=== PATIENT | male | born 1975 | race Caucasian/White ===

== ENCOUNTER → 2018-10-02 07:31 | Outpatient (CLI) | payer OTHER, SELFPAY ==
[2018-10-02 11:03] LABS: ALB/GLOB Ratio 1.2 RATIO (0.9-2.4); AST(SGOT) 17 U/L (15-37); Alanine Aminotransfer ALT/SGPT 37 U/L (16-61); Alkaline Phosphatase 45 U/L (45-117); Anion Gap 10 (5-15); BUN 19 mg/dL (7-18); BUN/Creat Ratio 19.6 RATIO (10-20); Calcium,Total 8.4 mg/dL (8.5-10.1); Chloride 101 mmol/L (98-107); Cholesterol 203 mg/dL (200); Creatinine, Serum 0.97 mg/dL (0.70-1.30); EST Glomerular Filtration Rate 89 mL/min (>60); Est Glom Filt Rate - Afr Amer 108 mL/min (>60); Globulin 3.4 g/dL (2.2-4.2); Glucose 291 mg/dL (74-106); High Density Lipoprotein 45 mg/dL; Potassium 3.9 mmol/L (3.5-5.1); Protein, Total 7.4 g/dL (6.4-8.2); Sodium Level 137 mmol/L (136-145); Thyroid Stim Hormone (TSH) 2.67 uIU/mL (0.358-3.74); Triglycerides 122 mg/dL; Very Low Density Lipoprotein 24 mg/dL (5-40)
== END ==
PROVIDERS: Family Provider Family Medicine; PCP Family Medicine; Referring Provider Family Medicine; Visit Provider Family Medicine
DX: E11.65 Type 2 diabetes mellitus with hyperglycemia (principal)
CPT/HCPCS: 36415; 80053; 80061; 84403; 84443

== ENCOUNTER → 2019-12-13 09:51 | Outpatient (CLI) | payer OTHER, SELFPAY ==
--- NOTE | 2019-12-13 09:55 | RAD_ITS ---
STUDY: X-RAY - LEFT KNEE REASON FOR EXAM: Male, 44 years old. left knee pain, swelling -- 2 surgeries on the left knee in the TECHNIQUE: 4 view(s) of the knee including weight-bearing frontal view. COMPARISON: None. FINDINGS: 2 fully threaded screws are embedded in the medial portion of the medial femoral condyle. Otherwise normal femur. Normal visualized proximal tibia and fibula. Normal proximal tibiofibular articulation. There is severe degenerative arthrosis of the medial femorotibial compartment with severe joint space narrowing. Normal lateral femorotibial compartment. There is mild degenerative arthrosis of the patellofemoral articulation. Minimal joint effusion. The soft tissue structures are unremarkable. RAD/Knee 4 or More Views IMPRESSION: 2 fully threaded screws embedded in the medial portion of the medial femoral condyle. Degenerative arthrosis of the knee that is most severe in the medial compartment. Small volume joint effusion. Electronically Signed: Tasha Mills MD at 16:54 EST , Service support ,
== END ==
PROVIDERS: PCP Family Medicine; Referring Provider Family Medicine; Visit Provider Family Medicine
DX: M25.562 Pain in left knee (principal)
CPT/HCPCS: 73564

== ENCOUNTER → 2020-02-11 08:37 | Outpatient (CLI) | payer OTHER, SELFPAY ==
[2020-02-11 11:13] LABS: ALB/GLOB Ratio 1.1 RATIO (0.9-2.4); AST(SGOT) 23 U/L (15-37); Alanine Aminotransfer ALT/SGPT 49 U/L (16-61); Albumin, Serum 4.1 g/dL (3.2-5.0); Alkaline Phosphatase 43 U/L (45-117); Anion Gap 9 (5-15); BUN 21 mg/dL (7-18); BUN/Creat Ratio 22.6 RATIO (10-20); Calcium,Total 8.9 mg/dL (8.5-10.1); Chloride 105 mmol/L (98-107); Cholesterol 182 mg/dL (200); Creatinine, Serum 0.93 mg/dL (0.70-1.30); EST Glomerular Filtration Rate 93 mL/min (>60); Est Glom Filt Rate - Afr Amer 112 mL/min (>60); Globulin 3.6 g/dL (2.2-4.2); Glucose 193 mg/dL (74-106); High Density Lipoprotein 50 mg/dL; PSA,Total - Annual Screen 0.29 ng/mL (0.00-4.00); Potassium 4.1 mmol/L (3.5-5.1); Protein, Total 7.7 g/dL (6.4-8.2); Sodium Level 137 mmol/L (136-145); Thyroid Stim Hormone (TSH) 2.51 uIU/mL (0.358-3.74); Triglycerides 202 mg/dL; Very Low Density Lipoprotein 40 mg/dL (5-40)
== END ==
PROVIDERS: PCP Family Medicine; Referring Provider Family Medicine; Visit Provider Family Medicine
DX: E11.65 Type 2 diabetes mellitus with hyperglycemia (principal); N40.0 Benign prostatic hyperplasia without lower urinary tract symptoms
CPT/HCPCS: 36415; 80053; 80061; 84153; 84403; 84443; G0103

== ENCOUNTER → 2020-11-10 11:25 | Outpatient (CLI) | payer OTHER, SELFPAY | PROVIDERS: PCP Family Medicine; Visit Provider Family Medicine | DX: E11.65 Type 2 diabetes mellitus with hyperglycemia (principal) | CPT/HCPCS: 36415 ==

== ENCOUNTER → 2021-05-12 09:54 | Outpatient (CLI) | payer OTHER, SELFPAY | PROVIDERS: PCP Family Medicine; Referring Provider Family Medicine; Visit Provider Family Medicine | DX: E11.65 Type 2 diabetes mellitus with hyperglycemia (principal); N52.9 Male erectile dysfunction, unspecified | CPT/HCPCS: 36415 ==

== ENCOUNTER → 2021-09-10 16:19 | Outpatient (CLI) | payer OTHER, SELFPAY | PROVIDERS: PCP Family Medicine; Referring Provider Family Medicine; Visit Provider Family Medicine | DX: T14.8XXA Other injury of unspecified body region, initial encounter (principal) | CPT/HCPCS: 36415 ==

== ENCOUNTER → 2023-02-17 | Outpatient (CLI) | payer OTHER, SELFPAY | END | disposition home or self-care (01) | PROVIDERS: PCP Family Medicine; Visit Provider Family Medicine | DX: N39.0 Urinary tract infection, site not specified (principal) | CPT/HCPCS: 87086 ==

== ENCOUNTER → 2024-04-18 | Outpatient (CLI) | payer OTHER, SELFPAY ==
--- NOTE | 2024-04-18 16:17 | US_ITS ---
STUDY: SCROTUM ULTRASOUND REASON FOR EXAM: Male, 49 years old. One month history of left testicular pain and swelling. TECHNIQUE: Ultrasound evaluation of the scrotum was performed with color Doppler and static welsh-scale imaging. COMPARISON: None. FINDINGS: RIGHT TESTICLE INTRATESTICULAR: There is a normal size of the right testicle. The right testicle measures 3.4 cm x 3.1 cm x 2 cm. There is a homogenous echotexture. There is normal arterial and normal venous vascularity. There is no demonstrated right testicular mass or cyst. EXTRATESTICULAR: The epididymis is normal in size. The epididymis head measures 0.7 cm x 0.9 cm x 0.9 cm. There is normal vascularity of the epididymis. There is no demonstrated epididymal cystic structure. There is no demonstrated hydrocele. There is no demonstrated varicocele. There is no demonstrated extratesticular mass or cyst. LEFT TESTICLE INTRATESTICULAR: There is a normal size of the left testicle. The left testicle measures 3.6 cm x 2.5 cm x 2.3 cm. There is a homogenous echotexture. There is normal arterial and normal venous vascularity. There is no demonstrated left testicular mass or cyst. EXTRATESTICULAR: The epididymis is normal in size. The epididymis head measures 1.1 cm x 1.2 cm x 0.9 cm. There is normal vascularity of the epididymis. There is no demonstrated epididymal cystic structure. There is a small hydrocele. There is no demonstrated varicocele. There is no demonstrated extratesticular mass or cyst. US/Testicular with Arterial Flow IMPRESSION: Small left hydrocele. Electronically Signed: Jean-Pierre Wade MD at 15:06 EDT ,
== END | disposition home or self-care (01) ==
LOC: US 16:15
PROVIDERS: PCP Family Medicine; Referring Provider Nurse Practitioner Family; Visit Provider Nurse Practitioner Family
DX: N50.819 Testicular pain, unspecified (principal)
CPT/HCPCS: 76870; 93976

== ENCOUNTER 2024-05-15 03:40 | Inpatient (IN) | payer OTHER, SELFPAY ==
[2024-05-15] VITALS (14 sets, daily range): BP systolic 109–133; BP diastolic 57–90; PULSE 87–110; RESP 12–22; TEMP 36.3–37.1; O2SAT 94–100; BMI 31.6; BMI 31.5
--- NOTE | 2024-05-15 04:23 | CT_ITS ---
STUDY: PELVIS WITH CONTRAST REASON FOR EXAM: Male, 49 years old. Perirectal abscess RADIATION DOSAGE (If Supplied By Facility): CTDIvol = ( 28.21 ) mGy, DLP = ( 1180.23 ) mGycm TECHNIQUE: IV 100mL Isovue-[id number] was administered. Transaxial images were obtained from the dome of the diaphragm to the symphysis pubis in the arterial, nephrographic and excretory phases. Multiplanar coronal and sagittal images were reformatted. The protocol utilizes one or more of the following dose reduction techniques: automated exposure control, adjustment of mA and/or kV according to patient size,and/or use of iterative reconstruction technique. COMPARISON: No relevant prior comparison study available FINDINGS: Normal urinary bladder. There is left perianal abscess measures 9.7 x 4.5 cm x 9.5 . Normal osseous structures. CT/Pelvis WITH IV Contrast IMPRESSION: There is left perianal abscess measures 9.7 x 4.5 cm x 9.5. Electronically Signed: Debi Riley MD at 7:09 EDT ,
[2024-05-15] MEDS: Morphine 4 MG/ML Syringe IV (04:44)
[2024-05-15] MEDS: Ondansetron 4 MG/2 ML Vial IV (04:44)
[2024-05-15] MEDS: 0.9% Normal Saline (1000mL) 1,000 ML 999 ML IV (04:44)
[2024-05-15 05:00] LABS: Absolute Lymphocyte Count 1.47 X10^3/uL (0.83-4.51); Absolute Neutrophil Count 14.4 X10^3/uL (2.0-7.7); Basophil# 0.15 X10^3/uL; Basophil% 0.8 % (0-1); Eosinophil# 0.14 X10^3/uL; Eosinophils% 0.7 % (0-5); Hematocrit 40.3 % (40-54); Hemoglobin 14.8 g/dL (13.0-16.5); Lymphocyte # 1.47 X10^3/ul (0.83-4.51); Lymphocyte % 7.9 % (19-41); Mean Corp Hgb Conc 36.7 g/dL (32-36); Mean Corpuscular Hgb 32.2 pg (27.0-32.0); Mean Corpuscular Volume 87.8 fL (80-94); Mean Platelet Vol. 9.3 fl (6.2-12.0); Monocyte# 2.32 X10^3/uL; Monocyte% 12.4 % (0-10); NRBC Flagged by Analyzer 0 % (0-5); Neutrophil # 14.41 X10^3/uL (2.7-7.7); Neutrophil % 77.2 % (47-70); POSITIVE DIFFERENTIAL YES; Platelet Count 272 K/mm3 (150-450); RBC Distribution Width SD 38.8 fl (35.1-43.9); Red Blood Count 4.59 M/mm3 (4.6-6.2); White Blood Count 18.7 K/mm3 (4.4-11.0)
[2024-05-15 05:09] LABS: Differential Indicated SCAN CRITERIA MET
[2024-05-15 05:18] LABS: Anion Gap 12 (5-15); BUN 27 mg/dL (7-18); Calcium,Total 9.4 mg/dL (8.5-10.1); Chloride 103 mmol/L (98-107); Creatinine, Serum 1.04 mg/dL (0.70-1.30); EST Glomerular Filtration Rate 80 mL/min (>60); Est Glom Filt Rate - Afr Amer 97 mL/min (>60); Glucose 287 mg/dL (74-106); Potassium 3.1 mmol/L (3.5-5.1); Sodium Level 136 mmol/L (136-145)
[2024-05-15] MEDS: HYDROmorphone 1 MG/ML Syringe IV ×2 (05:22→11:53)
[2024-05-15 05:27] LABS: Lactic Acid 2.4 mmol/L (0.4-1.9)
[2024-05-15 05:29] LABS: Procalcitonin 0.14 ng/mL (0.00-0.09)
[2024-05-15] MEDS: Vancomycin IV 1,000 MG/200 ML BAG 200 MG IV (05:31)
[2024-05-15 05:51] LABS: Differential Comment SCANNED
--- NOTE | 2024-05-15 07:04 | EDS_ITS ---
HPI History of Present Illness Chief Complaint: General Illness Informant: patient and spouse/S.O. Narrative Narrative: Patient is a 49-year-old male with past medical history of [id number] diabetes hypertension and hyperlipidemia. He states that starting roughly 3 weeks ago he noticed small amount of pain along the left buttocks region. He states there was no trauma or excessive activity. He states as time is passed the pain is worsened and he has noticed that there is swelling and redness as well. He states he went to an urgent care secondary to this and was placed on doxycycline but also given prednisone as he was unsure if this was infectious or inflammatory in nature. Patient states despite taking those for the past few days there is been no symptom improvement and therefore he comes in for evaluation [facility] Medical History Hyperlipidemia HTN (hypertension) Diabetes Home Medications ?Medication ?Instructions ?Recorded ?Last Taken ?Type atorvastatin 20 mg tablet 20 mg PO QDAY 05/13/24 Unknown History dapagliflozin propanediol 10 mg 10 mg PO QDAY 05/13/24 Unknown History tablet (Farxiga) lisinopril 10 mg tablet 10 mg PO QDAY 05/13/24 Unknown History metformin 1,000 mg tablet 1,000 mg PO QDAY 05/13/24 Unknown History prednisone 10 mg tablet 10 mg PO .COMPLEX 15 days #35 tabs 05/13/24 Unknown Rx semaglutide 14 mg tablet (Rybelsus) 14 mg PO QAM 05/13/24 Unknown History sulfamethoxazole 800 1 tab PO BID 14 days #28 tabs 05/13/24 Unknown Rx mg-trimethoprim 160 mg tablet (Bactrim DS) tamsulosin 0.4 mg capsule 0.8 mg PO QDAY 05/13/24 Unknown History trazodone 50 mg tablet 50 mg PO QHS PRN sleep #7 tabs 05/13/24 Unknown Rx Allergy/AdvReac Type Severity Reaction Status Date / Time Penicillins (PCN) Allergy Severe Anaphylaxis Verified 05/15/24 03:46 Family History (Updated 05/13/24 @ 09:54 by Mabel Mcdonough) Other Cancer Diabetes Heart disease Surgical History History of appendectomy History of arthroscopic knee surgery Social History (Updated 05/13/24 @ 09:54 by Mabel Mcdonough) Smoking Status: Never smoker alcohol intake: current substance use type: does not use ROS ROS ED Constitutional Constitutional ED: Denies chills or fever(s) ENT ENT ED: Denies sore throat Cardiovascular Cardiovascular: Denies chest pain Respiratory/Chest Respiratory/Chest: Denies cough or dyspnea Gastrointestinal Gastrointestinal: Denies abdominal pain, diarrhea, nausea or vomiting Genitourinary Genitourinary ED: Denies dysuria or hematuria Musculoskeletal Musculoskeletal: Reports other Details: Positive gluteal pain ; Denies myalgias Integumentary Reports abscess; Denies rash Neurologic Neurologic: Denies headache(s) Hematologic/Lymphatic Hematologic/Lymphatic: Denies easy bleeding or easy bruising EXAM Physical Exam Const Vital Signs: 05/15/24 03:42 05/15/24 03:46 05/15/24 06:41 Temperature 97.4 F L Temperature Source Temporal Pulse Rate 110 H Pulse Rate [1 (Initial Baseline)] 94 Respiratory Rate 22 H Respiratory Rate [1 (Initial Baseline)] 17 Respiratory Effort Normal Respiratory Pattern Normal Blood Pressure 110/83 H Blood Pressure [1 (Initial Baseline)] 130/57 H Blood Pressure Mean 92 Pulse Ox 96 Oxygen Delivery Method Room Air Oxygen Delivery Method [1 (Initial Baseline)] Room Air 05/15/24 06:51 05/15/24 06:59 05/15/24 07:04 Temperature Temperature Source Pulse Rate 95 Pulse Rate [1 (Initial Baseline)] Respiratory Rate 13 Respiratory Rate [1 (Initial Baseline)] Respiratory Effort Respiratory Pattern Blood Pressure 132/78 H Blood Pressure [1 (Initial Baseline)] Blood Pressure Mean Pulse Ox 99 Oxygen Delivery Method Room Air Room Air Room Air Oxygen Delivery Method [1 (Initial Baseline)] Positive well nourished and well developed General Appearance ED: well developed HEENT HEENT Narrative: Normocephalic atraumatic Eyes PERRL and EOMs intact bilaterally General Eye ED: Negative for pale conjunctiva or scleral icterus Neck supple Neck Narrative: No nuchal rigidity or meningeal signs Resp normal respiratory effort and clear to auscultation bilaterally Cardio regular rhythm Rate: tachycardic and other Other Details: Tachycardic rate with regular rhythm Radial and carotid pulses are equal and symmetric GI normal to inspection, nondistended, normoactive bowel sounds, non-tender and non-distended Auscultation: normoactive bowel sounds Palpation: soft Narrative: Gluteal exam shows soft tissue swelling with asymmetric erythema and warmth to the left gluteal muscle compared to right. There is induration along the gluteal cleft on the left that extends down into the perineum. There is no lymphangitic streaking or active drainage. No crepitance palpated to suggest Stefanie's gangrene Extremity normal to inspection Neuro oriented x3, CN's II-XII intact bilaterally and no sensory deficits noted Sensorium / Orientation: alert Motor Exam: strength 5/5 throughout Psych mental status grossly normal Skin Skin Narrative: Soft tissue changes to the left gluteal and perineal region concerning for perirectal abscess with cellulitis MDM MDM MDM Narrative Medical decision making narrative: Patient presented to the ER afebrile but reported worsening symptoms over the past few weeks and also is currently on antibiotics without any symptom improvement. With concern for perirectal versus rectal abscess versus infection leading to DKA versus necrotizing fasciitis/Stefanie's gangrene a CT scan with IV contrast and basic labs were obtained. Patient's white count is elevated 18.7 but he has been on steroids for the past few days. CT scan showed changes consistent with a large perirectal abscess. Secondary to this the case was discussed with general surgery on-call Dr. Gama. He feels that with his diabetic status the fact that he has an elevated white count and symptoms have been worsening for multiple weeks that he would benefit from IV antibiotics. Secondary to this he was started on vancomycin and with concern for anaerobic coverage pharmacy recommended meropenem be added. The patient underwent incision and drainage in the ER which was performed by Dr. Gama while I provided conscious sedation as documented. At this time as patient will require continued IV antibiotics secondary to the advanced nature of the infection he will be kept on general surgery service. Plan of care was discussed with the patient is agreeable to it History & Record Review Discussion w/independent historian: Patient and Significant other Lab Data Attestation: I reviewed the patient's lab results. Labs: Laboratory Results - last 24 hr 05/15/24 04:40 WBC 18.7 H RBC 4.59 L Hgb 14.8 Hct 40.3 MCV 87.8 MCH 32.2 H MCHC 36.7 H RDW Std Deviation 38.8 RDW Coeff of Arya 12.0 Plt Count 272 MPV 9.3 Immature Gran % (Auto) 1.000 H Neut % (Auto) 77.2 H Lymph % (Auto) 7.9 L [place] % (Auto) 12.4 H Eos % (Auto) 0.7 Baso % (Auto) 0.8 Absolute Neuts (auto) 14.4 H Absolute Lymphs (auto) 1.47 Nucleated RBC % 0 Differential Comment SCANNED Diff Path Review May foll Sodium 136 Potassium 3.1 L Chloride 103 Carbon Dioxide 21.0 Anion Gap 12 BUN 27 H Creatinine 1.04 Est GFR (MDRD) Af Amer 97 Est GFR (MDRD) Non-Af 80 BUN/Creatinine Ratio 26.0 H Glucose 287 H Lactic Acid 2.4 H* Calcium 9.4 Procalcitonin 0.14 H Radiography Diagnostic Testing: Clinical Impression(s) from Imaging Studies Pelvis CT 05/15/24 04:23 IMPRESSION: There is left perianal abscess measures 9.7 x 4.5 cm x 9.5. Electronically Signed: Debi Riley MD at 7:09 EDT , Management Discussion w/another healthcare provider: [employer] Procedures Procedural Sedation 2: Consent Signed: Yes Any Problems With Anesthesia: No You/Your family experience fever (hyperthermia) w/anesthesia: No Sedation medication: Versed Dose: 120 Route: IV Total Moderate Sedation Units: 8 Maliampati Score: Class II ASA Classification: III Comment:: Patient was consciously sedated using a total of 120 mg of propofol and 5 mg of Versed. Total conscious sedation time was approximately 10 minutes Discharge Plan Dx/Rx/DC Orders Clinical Impression: Perirectal abscess, HTN (hypertension), Hyperlipidemia, Non-insulin dependent diabetes mellitus Disposition Disposition: Acute Care Hospital [facility]
--- NOTE | 2024-05-15 07:15 | NURSING ---
MED SURG PETER PERIRECTAL ABSCESS
[2024-05-15] MEDS: Propofol 200 MG/20 ML Vial IV BOLUS (07:27)
[2024-05-15] MEDS: Lidocaine 1% (20 ml mdv) 20 ML Vial 10 ML INFILT (07:28)
[2024-05-15] MEDS: Midazolam 5 MG/ML Syringe IV (07:28)
--- NOTE | 2024-05-15 07:34 | PCM.HP.STD ---
HPI - General General Date of Admission: 05/15/24 Date of Service: 05/15/24 Chief Complaint: Painful left gluteal lump HPI Narrative DEENA BENITEZ, is a 49 M who presents with a 2 week history of worsening left gluteal painful lump. Patient notes he was evaluated by the urgent care who placed him on antibiotics. He noted at that time he did not have any skin redness or firmness near the skin surface, so he was treated for prostatitis. Patient notes the lump continued to become worse with pain. he denies having a fever, nausea and vomiting associated with the painful lump. Patient states he has had a lack of appetite from his symptoms. Patient denies having any previous abscesses such as this. Pelvic CT was obtained demonstrating left perianal abscess measures 9.7 x 4.5 x 9.5 cm fluid collection. WBC 18.7, Hgb 14.8, Hct 40.3, Plt 272. Neut 77.2 PFSH Medical History Hyperlipidemia HTN (hypertension) Diabetes Home Medications ?Medication ?Instructions ?Recorded ?Last Taken ?Type atorvastatin 20 mg tablet 20 mg PO QDAY 05/13/24 Unknown History dapagliflozin propanediol 10 mg 10 mg PO QDAY 05/13/24 Unknown History tablet (Farxiga) lisinopril 10 mg tablet 10 mg PO QDAY 05/13/24 Unknown History metformin 1,000 mg tablet 1,000 mg PO QDAY 05/13/24 Unknown History prednisone 10 mg tablet 10 mg PO .COMPLEX 15 days #35 tabs 05/13/24 Unknown Rx semaglutide 14 mg tablet (Rybelsus) 14 mg PO QAM 05/13/24 Unknown History sulfamethoxazole 800 1 tab PO BID 14 days #28 tabs 05/13/24 Unknown Rx mg-trimethoprim 160 mg tablet (Bactrim DS) tamsulosin 0.4 mg capsule 0.8 mg PO QDAY 05/13/24 Unknown History trazodone 50 mg tablet 50 mg PO QHS PRN sleep #7 tabs 05/13/24 Unknown Rx Allergy/AdvReac Type Severity Reaction Status Date / Time Penicillins (PCN) Allergy Severe Anaphylaxis Verified 05/15/24 03:46 Family History (Updated 05/13/24 @ 09:54 by Mabel Mcdonough) Other Cancer Diabetes Heart disease Surgical History History of appendectomy History of arthroscopic knee surgery Social History (Updated 05/13/24 @ 09:54 by Mabel Mcdonough) Smoking Status: Never smoker alcohol intake: current substance use type: does not use ROS Constitutional Constitutional: Reports fatigue, malaise and weakness Eyes Eyes: Reports systems reviewed and no addt'l complaints, except as documented ENT HEENT: Reports systems reviewed and no addt'l complaints, except as documented Cardiovascular Cardiovascular: Reports systems reviewed and no addt'l complaints, except as documented Respiratory/Chest Respiratory/Chest: Reports systems reviewed and no addt'l complaints, except as documented Gastrointestinal Gastrointestinal: Reports systems reviewed and no addt'l complaints, except as documented Genitourinary Genitourinary: Reports scrotal swelling Musculoskeletal Musculoskeletal: Reports systems reviewed and no addt'l complaints, except as documented Integumentary Integumentary: Reports systems reviewed and no addt'l complaints, except as documented Neurologic Neurologic: Reports systems reviewed and no addt'l complaints, except as documented Psychiatric Psychiatric: Reports systems reviewed and no addt'l complaints, except as documented Endocrine Endocrinology: Reports systems reviewed and no addt'l complaints, except as documented Hematologic/Lymphatic Hematologic/Lymphatic: Reports systems reviewed and no addt'l complaints, except as documented Allergic/Immunologic Allergic/Immunologic: Reports systems reviewed and no addt'l complaints, except as documented Vital Signs Vital Signs Vital Signs: 05/15/24 03:42 05/15/24 03:46 05/15/24 05:41 Temperature 97.4 F L Temperature Source Temporal Pulse Rate 110 H 90 Pulse Rate [1 (Initial Baseline)] Respiratory Rate 22 H 15 Respiratory Rate [1 (Initial Baseline)] Respiratory Effort Normal Respiratory Pattern Normal Blood Pressure 110/83 H Blood Pressure [1 (Initial Baseline)] Blood Pressure Mean 92 Pulse Ox 96 98 Oxygen Delivery Method Room Air Room Air Oxygen Delivery Method [1 (Initial Baseline)] 05/15/24 06:41 05/15/24 06:51 05/15/24 06:59 Temperature Temperature Source Pulse Rate 95 Pulse Rate [1 (Initial Baseline)] 94 Respiratory Rate 13 Respiratory Rate [1 (Initial Baseline)] 17 Respiratory Effort Respiratory Pattern Blood Pressure 132/78 H Blood Pressure [1 (Initial Baseline)] 130/57 H Blood Pressure Mean Pulse Ox 99 Oxygen Delivery Method Room Air Room Air Oxygen Delivery Method [1 (Initial Baseline)] Room Air 05/15/24 07:04 05/15/24 07:09 Temperature Temperature Source Pulse Rate Pulse Rate [1 (Initial Baseline)] Respiratory Rate Respiratory Rate [1 (Initial Baseline)] Respiratory Effort Respiratory Pattern Blood Pressure Blood Pressure [1 (Initial Baseline)] Blood Pressure Mean Pulse Ox Oxygen Delivery Method Room Air Room Air Oxygen Delivery Method [1 (Initial Baseline)] Physical Exam Const alert, oriented x3 and no apparent distress HEENT normocephalic and head/scalp atraumatic Eyes PERRL Neck full ROM Lymph Lymphatic: no lymphadenopathy noted Resp normal respiratory effort and clear to auscultation bilaterally Cardio regular rate and regular rhythm GI normal to inspection, nondistended, normoactive bowel sounds no CVA tenderness Back/Spine no CVA tenderness Extremity normal to inspection Skin Skin Narrative: Left gluteal region- painful palpable lump near the left lateral anus Neuro no focal motor deficits and no sensory deficits noted Psych mental status grossly normal and thought process normal Results Lab / Micro Data 05/15/24 04:40 05/15/24 04:40 Labs: Laboratory Results - last 24 hr 05/15/24 04:40: WBC 18.7 H, RBC 4.59 L, Hgb 14.8, Hct 40.3, MCV 87.8, MCH 32.2 H, MCHC 36.7 H, RDW Std Deviation 38.8, RDW Coeff of Arya 12.0, Plt Count 272, MPV 9.3, Immature Gran % (Auto) 1.000 H, Neut % (Auto) 77.2 H, Lymph % (Auto) 7.9 L, [place] % (Auto) 12.4 H, Eos % (Auto) 0.7, Baso % (Auto) 0.8, Absolute Neuts (auto) 14.4 H, Absolute Lymphs (auto) 1.47, Nucleated RBC % 0, Differential Comment SCANNED, Diff Path Review March, Sodium 136, Potassium 3.1 L, Chloride 103, Carbon Dioxide 21.0, Anion Gap 12, BUN 27 H, Creatinine 1.04, Est GFR (MDRD) Af Amer 97, Est GFR (MDRD) Non-Af 80, BUN/Creatinine Ratio 26.0 H, Glucose 287 H, Lactic Acid 2.4 H*, Calcium 9.4, Procalcitonin 0.14 H Imaging Radiology Impression Pelvis CT 05/15/24 04:23 IMPRESSION: There is left perianal abscess measures 9.7 x 4.5 cm x 9.5. Electronically Signed: Debi Riley MD at 7:09 EDT , Assessment & Plan Assessment/Plan (1) Perirectal abscess: PLAN: I am seeing this patient in conjunction with Dr. Gama. Patient presents with a 2 week history of painful left anal mass. CT scan of the pelvis demonstrated a moderate sized fluid collection in the left perianal region. Dr. Gama performed an incision and drainage of the left perianal abscess at bedside in the ED under conscious sedation. Cultures were obtained in the ED. Patient was placed on IV Vanco and Merrem. Plan will be to admit patient to medical/surgical floor for additional IV antibiotics and dressing changes. Consult has been placed for our wound nurse to assist with twice daily packing changes. Patient will be placed on clear liquids at this time. Patient is a diabetic and will return to his routine daily medications. Patient will also have blood glucose tested at bedside prior to meals and at bedtime. Plan for a 2 night inpatient stay. Patient will likely be discharged to home on oral antibiotics. Patient has had the opportunity to ask and have questions answered. Patient verbally understands and agrees with the plan. Thank you for allowing us to participate in this patient's care. Charges/Coding Visit Charges Inpatient E&M: 84542 Init Hosp L1
[2024-05-15] MEDS: 0.9% Normal Saline (1000mL) 1,000 ML 75 ML IV (07:56)
[2024-05-15] MEDS: Meropenem 1 GM in 0.9% Normal Saline (100mL MB+) 100 ML IV (07:57)
--- NOTE | 2024-05-15 08:19 | PCM.RX.CS ---
Consult Antibiotic Management Pharmacy has been consulted to manage selected antibiotic: Vancomycin Type of Intervention Type of Consult: New start Suspected Infection Suspected Infection: Other (PERIRECTAL ABSCESS) Prior Doses of Antibiotics Prior Doses of Antibiotics Received/Current Regimen: Vancomycin 2000 mg IV x 1 given 05/15/24 @ 0531 Labs Labs: Sodium 136 mmol/L (136-145) 05/15/24 04:40 Potassium 3.1 mmol/L (3.5-5.1) L 05/15/24 04:40 Chloride 103 mmol/L (98-107) 05/15/24 04:40 Carbon Dioxide 21.0 mmol/L (21.0-32.0) 05/15/24 04:40 Anion Gap 12 (5-15) 05/15/24 04:40 BUN 27 mg/dL (7-18) H 05/15/24 04:40 Creatinine 1.04 mg/dL (0.70-1.30) 05/15/24 04:40 Est GFR (MDRD) Af Amer 97 mL/min (>60) 05/15/24 04:40 Est GFR (MDRD) Non-Af 80 mL/min (>60) 05/15/24 04:40 BUN/Creatinine Ratio 26.0 RATIO (10-20) H 05/15/24 04:40 Glucose 287 mg/dL (74-106) H 05/15/24 04:40 Dosing Weight Weight used for dosin kg Estimated Creatinine Clearance Estimated Creatinine Clearance: ~99 Goal Trough Goal Trough: 15-20 mcg/mL Pharmacy Plan for Drug Dosing Pharmacy Plan for Drug Dosing: Vancomycin 2000 mg loading dose followed by 2000 mg IV Q12H. Pharmacy Service will continue to monitor and adjust dosing as required. Follow-Up Labs Follow-Up Labs: Trough: Vancomycin Date/Time Labs Ordered Labs to be done on [date and time ordered]: 05/16/24 @ 5521
--- NOTE | 2024-05-15 08:43 | PCM.OPRPT ---
Report of Operation Date of Procedure: 05/15/24 Pre-Operative Diagnosis: Deep perirectal abscess on the left side Post-Operative Diagnosis: Same Surgery/Procedure Performed:: Incision and drainage with packing Type of Anesthesia: Local MAC Specimen's removed: Specimen was cultured Estimated Blood Loss (mL): 5 Description of Procedure: After discussing the risks of bleeding and infection with the patient the patient consented to proceed. After obtaining written consent the patient was given conscious sedation by the emergency room doctor. The left buttock was prepped and draped in usual sterile fashion. The skin was anesthetized and then opened with a scalpel. There was copious amount of purulent discharge. The fluid was cultured and then suction with the [email or web address] suction. I received about 200 cc of purulent material. My finger was used to break up any loculations and I was able to probe the entire cavity. It reached to the ischial fossa. The area was irrigated and suctioned dry again and then packed with 1 inch gauze. Dressing was applied. Patient tolerated procedure well and will be admitted to the floor.
[2024-05-15 08:46] LABS: Reflex Lactate? Y
--- NOTE | 2024-05-15 09:22 | WOUNDNOTE ---
Pt had I&D of a left ana rectal abscess this am per Dr Gama. the packing is intact with some bloody drainage noted. cleaned skin around the packing and pat dry. placed a folded 4x4 dressing between buttocks and covered with ABD pad. secured with small amount of tape. will plan to change packing later today. present in room and states she can change packing if she needs to, but is hoping that her daughter who is a nurse can help.
[2024-05-15] MEDS: oxyCODONE 5 MG Tablet PO ×3 (09:31→21:33)
[2024-05-15] MEDS: Acetaminophen 325 MG Tablet 650 MG PO ×3 (09:32→21:33)
[2024-05-15 09:56] LABS: Lactic Acid 1.5 mmol/L (0.4-1.9)
--- NOTE | 2024-05-15 10:45 | CASEMGMT ---
PAVEL MCGILL Assessment Face to Face with patient for initial transition planning/care coordination assessment. PAVEL MCGILL introduced self and role at [facility], pt voices understanding. Pt is A&Ox4 and is resting comfortably in bed and is calm. Pt at bedside. Care providers, pharmacy, and demographics verified. Admitting dx: Perirectal Abscess PCP: Bill Rodriguez Specialists: Pt plans to f/u with Dr. Chao on Tuesday Preferred Pharmacy: [facility] Insurance: [employer] Prescription Benefit: Yes LNOK: Flora Rivera (W) Living Arrangements: Pt lives with his in a ranch style home with 1 step to enter ADLs/IADLs: Ind Transportation: Self, DME: Working [employer] and supplies. Pt denies all other DME uses or needs at this time HHC/SNF: Denies history or needs Pt?s goal: Home Plan: Pt states that he plans to return home once he is medically ready and plans to f/u with Dr. Chao on Tuesday after DC. Pt denies the need to go to the wound center for his wound. Pt states that his daughter is a nurse and also that his will be able to help at home. Pt denies the need for HHC or OP therapy. Pt states that he feels safe and comfortable with this plan moving forward. Pt and pt deny further questions or concerns at this time. CM to follow. Rell Panchal RN, CM
[2024-05-15 12:19] LABS: Bedside Glucose 267 mg/dL (74-106)
[2024-05-15 14:52] LABS: Pathologist Review Reviewed
[2024-05-15] MEDS: Ketorolac 15 MG/ML Vial IV (17:12)
[2024-05-15] MEDS: Insulin Lispro 100 UNIT/ML INSULN.PEN SC ×2 (17:20→21:26)
[2024-05-15 17:27] LABS: Bedside Glucose 284 mg/dL (74-106)
[2024-05-15] MEDS: Vancomycin HCl 2,000 MG in 0.9% Normal Saline (500mL Bag) 500 ML 250 MG IV (17:40)
[2024-05-15] MEDS: metFORMIN HCl 1,000 MG Tablet 1000 MG PO (21:29)
[2024-05-15] MEDS: Tamsulosin HCl 0.4 MG Capsule 0.8 MG PO (21:29)
[2024-05-16 00:25] LABS: Bedside Glucose 298 mg/dL (74-106)
[2024-05-16] MEDS: Ketorolac 15 MG/ML Vial IV ×4 (00:31→21:15)
[2024-05-16] MEDS: 0.9% Saline Lock 10 ML Syringe IV ×3 (00:31→21:18)
[2024-05-16 00:34] VITALS: BP 128/73; PULSE 80; RESP 18; TEMP 36.4; O2SAT 99
[2024-05-16 01:12] LABS: Bedside Glucose 192 mg/dL (74-106)
[2024-05-16] MEDS: oxyCODONE 5 MG Tablet PO ×2 (05:38→10:18)
[2024-05-16] MEDS: Acetaminophen 325 MG Tablet 650 MG PO ×3 (05:38→18:17)
[2024-05-16] MEDS: Vancomycin HCl 2,000 MG in 0.9% Normal Saline (500mL Bag) 500 ML 250 MG IV ×2 (05:39→19:44)
[2024-05-16 06:07] VITALS: BP 124/75; PULSE 77; RESP 18; TEMP 36.1; O2SAT 98
[2024-05-16] MEDS: Insulin Lispro 100 UNIT/ML INSULN.PEN SC ×3 (06:39→21:23)
[2024-05-16] MEDS: SEMAGLUTIDE 14 MG TABLET PO (06:44)
[2024-05-16 07:34] LABS: Absolute Lymphocyte Count 1.77 X10^3/uL (0.83-4.51); Absolute Neutrophil Count 7.5 X10^3/uL (2.0-7.7); Basophil# 0.12 X10^3/uL; Basophil% 1.1 % (0-1); Eosinophil# 0.27 X10^3/uL; Eosinophils% 2.4 % (0-5); Hematocrit 35.2 % (40-54); Hemoglobin 12.1 g/dL (13.0-16.5); Lymphocyte # 1.77 X10^3/ul (0.83-4.51); Lymphocyte % 15.8 % (19-41); Mean Corp Hgb Conc 34.4 g/dL (32-36); Mean Corpuscular Hgb 31.5 pg (27.0-32.0); Mean Corpuscular Volume 91.7 fL (80-94); Mean Platelet Vol. 9.4 fl (6.2-12.0); Monocyte# 1.45 X10^3/uL; NRBC Flagged by Analyzer 0 % (0-5); Neutrophil # 7.51 X10^3/uL (2.7-7.7); Neutrophil % 67.1 % (47-70); Platelet Count 225 K/mm3 (150-450); RBC Distribution Width CV 12.4 % (11.6-14.6); RBC Distribution Width SD 41.1 fl (35.1-43.9); Red Blood Count 3.84 M/mm3 (4.6-6.2); White Blood Count 11.2 K/mm3 (4.4-11.0)
[2024-05-16 07:56] LABS: Anion Gap 3 (5-15); BUN 19 mg/dL (7-18); BUN/Creat Ratio 23.4 RATIO (10-20); Calcium,Total 8.7 mg/dL (8.5-10.1); Chloride 107 mmol/L (98-107); Creatinine, Serum 0.81 mg/dL (0.70-1.30); EST Glomerular Filtration Rate 107 mL/min (>60); Est Glom Filt Rate - Afr Amer 129 mL/min (>60); Estimated Creatinine Clearance 127.76 ml/min; Glucose 189 mg/dL (74-106); Potassium 3.3 mmol/L (3.5-5.1); Sodium Level 137 mmol/L (136-145)
--- NOTE | 2024-05-16 07:57 | PCM.PN.SRG ---
Subjective Subjective Patient's pain is improved from yesterday but he says it is still very painful. Objective Data Objective Data Vital Signs: Vital Signs Temp Pulse Resp BP Pulse Ox O2 Del Method 97 F L 77 18 124/75 H 98 Room Air 05/16/24 06:07 05/16/24 06:07 05/16/24 06:07 05/16/24 06:07 05/16/24 06:07 05/16/24 06:07 Oxygen Delivery Method [1 ( Room Air Initial Baseline)] Oxygen Delivery Method Room Air Weight: 219 lb 15.988 oz Body Mass Index (BMI) 31.5 Intake & Output: Intake and Output for Last 24 Hours 05/14/24 05/15/24 05/16/24 23:59 23:59 23:59 Intake Total 4407.25 / 4407.25 200 / 200 Balance 4407.25 / 4407.25 200 / 200 Lab / Micro Data 05/16/24 06:15 05/16/24 06:15 Labs: Laboratory Results - last 24 hr 05/15/24 04:40: Diff Path Review Reviewed 05/15/24 09:02: Lactic Acid 1.5 05/15/24 11:59: POC Glucose 267 H 05/15/24 17:09: POC Glucose 284 H 05/15/24 21:25: POC Glucose 298 H 05/16/24 00:40: POC Glucose 192 H 05/16/24 06:15: WBC 11.2 H, RBC 3.84 L, Hgb 12.1 L, Hct 35.2 L, MCV 91.7, MCH 31.5, MCHC 34.4 D, RDW Std Deviation 41.1, RDW Coeff of Arya 12.4, Plt Count 225, MPV 9.4, Immature Gran % (Auto) 0.600, Neut % (Auto) 67.1, Lymph % (Auto) 15.8 L, [place] % (Auto) 13.0 H, Eos % (Auto) 2.4, Baso % (Auto) 1.1 H, Absolute Neuts (auto) 7.5, Absolute Lymphs (auto) 1.77, Nucleated RBC % 0, Sodium 137, Potassium 3.3 L, Chloride 107, Carbon Dioxide 27.0, Anion Gap 3 L, BUN 19 H, Creatinine 0.81, Estim Creat Clear Calc 127.76, Est GFR (MDRD) Af Amer 129, Est GFR (MDRD) Non-Af 107, BUN/Creatinine Ratio 23.4 H, Glucose 189 H, Calcium 8.7 Radiography Diagnostic Testing: Radiology Impression Pelvis CT 05/15/24 04:23 IMPRESSION: There is left perianal abscess measures 9.7 x 4.5 cm x 9.5. Electronically Signed: Debi Riley MD at 7:09 EDT Reading Location ID and State: [facility] / [place] Tel , Service support , Physical Exam Const oriented x3 and no apparent distress Resp normal respiratory effort GI soft to palpation and non-tender Assessment & Plan Assessment/Plan (1) Perirectal abscess: PLAN: Patient is still having purulent drainage from his abscess. Packing is being changed twice a day. I will continue antibiotics and packing changes. No DC for today as he still has an elevated white count and purulent drainage. Continue antibiotics after discharge. Jemal Gama MD Pager: [facility] [address] [place] [address], [address] [place] [address] Office:
[2024-05-16 08:18] LABS: Bedside Glucose 185 mg/dL (74-106)
[2024-05-16 09:34] VITALS: O2SAT 98
--- NOTE | 2024-05-16 09:59 | NURSING ---
spoke w/AME in Rx, informed we are missing dose of merrepenum due @ 4129-to please retime (since dose isnt on unit during allowed administration times) and send
[2024-05-16] MEDS: Meropenem 1 GM in 0.9% Normal Saline (100mL MB+) 100 ML IV ×2 (10:05→13:35)
[2024-05-16] MEDS: Potassium Chloride Oral Tablet 20 MEQ 40 MEQ PO (10:06)
[2024-05-16] MEDS: Empagliflozin 25 MG Tablet PO (10:08)
[2024-05-16] MEDS: Atorvastatin Calcium 20 MG Tablet PO (10:08)
[2024-05-16] MEDS: Lisinopril 10 MG Tablet PO (10:08)
[2024-05-16] MEDS: Docusate Sodium 100 MG Capsule PO (10:11)
[2024-05-16 11:00] VITALS: BP 124/74; PULSE 88; RESP 18; TEMP 36.7; O2SAT 98
[2024-05-16 12:55] LABS: Bedside Glucose 249 mg/dL (74-106)
--- NOTE | 2024-05-16 15:39 | WOUNDNOTE ---
Pt had showered this afternoon. the packing was removed for the shower. this nurse in to reassess. removed the packing. there was still some purulent drainage noted. milked as much drainage out as possible. there is an area of yellow necrotic tissue at the entrance of the I&D site. this is soft and stringy. will talk with Dr Gama in the morning about possibly trimming some of this tissue in order to better pack the opening to allow it to drain. cleansed skin with soap and water. pat dry. repacked with 1 iodoform packing. placed 4x4 gauze pads between buttocks and covered with an ABD pad. secured dressing with a small amount of tape. pt tolerated well. pt does state that pain is improving. will continue to follow.
[2024-05-16 17:00] VITALS: BP 135/80; PULSE 70; RESP 18; TEMP 36.8; O2SAT 94
[2024-05-16 17:20] LABS: Bedside Glucose 183 mg/dL (74-106)
--- NOTE | 2024-05-16 18:41 | NURSING ---
1800 vanc dose not on unit for administration-pharmacy notified
[2024-05-16] MEDS: Fleet Enema 133 ML RC (19:04)
[2024-05-16 19:09] LABS: Vancomycin, Trough Level 17.5 ug/mL (5.0-15.0)
--- NOTE | 2024-05-16 19:36 | PCM.RX.CS ---
Consult Antibiotic Management Pharmacy has been consulted to manage selected antibiotic: Vancomycin Type of Intervention Type of Consult: Follow-up Labs Labs: Sodium 137 mmol/L (136-145) 05/16/24 06:15 Potassium 3.3 mmol/L (3.5-5.1) L 05/16/24 06:15 Chloride 107 mmol/L (98-107) 05/16/24 06:15 Carbon Dioxide 27.0 mmol/L (21.0-32.0) 05/16/24 06:15 Anion Gap 3 (5-15) L 05/16/24 06:15 BUN 19 mg/dL (7-18) H 05/16/24 06:15 Creatinine 0.81 mg/dL (0.70-1.30) 05/16/24 06:15 Est GFR (MDRD) Af Amer 129 mL/min (>60) 05/16/24 06:15 Est GFR (MDRD) Non-Af 107 mL/min (>60) 05/16/24 06:15 BUN/Creatinine Ratio 23.4 RATIO (10-20) H 05/16/24 06:15 Glucose 189 mg/dL (74-106) H 05/16/24 06:15 Vancomycin Trough 17.5 ug/mL (5.0-15.0) H 05/16/24 17:15 Microbiology Microbiology: Microbiology 05/15/24 06:50 Perianal Abcess Gram Stain - Final Goal Trough Goal Trough: 15-20 mcg/mL Pharmacy Plan for Drug Dosing Pharmacy Plan for Drug Dosing: VANCOMYCIN LEVEL RECEIVED Current Vancomycin Dose: 2000mg IV Q12hr Number of Doses Received: 3 Vancomycin Level: 17.5 Hours Since Last Dose: 11.75hr Renal Function: 0.81 Renal Function Trend: stable Lab/Micro: pending Vancomycin Plan/Comments: Patient had a trough drawn which resulted in a value of 17.5 (goal 15-20). Patient's trough is within therapeutic goal. Will continue current dose and recheck a trough in 2 days. Pending Level: 05/18/24 @4742 Pharmacy Service will continue to monitor and adjust dosing as required.
[2024-05-16 20:24] VITALS: BP 145/76; PULSE 87; RESP 18; TEMP 37.1; O2SAT 93
[2024-05-16] MEDS: Tamsulosin HCl 0.4 MG Capsule 0.8 MG PO (21:21)
[2024-05-16] MEDS: metFORMIN HCl 1,000 MG Tablet 1000 MG PO (21:22)
[2024-05-16 23:40] LABS: Bedside Glucose 216 mg/dL (74-106)
[2024-05-17] MEDS: Meropenem 1 GM in 0.9% Normal Saline (100mL MB+) 100 ML IV ×4 (00:02→22:06)
[2024-05-17 00:05] VITALS: BP 153/90; PULSE 73; RESP 18; TEMP 36.8; O2SAT 95
[2024-05-17] MEDS: Acetaminophen 325 MG Tablet 650 MG PO ×2 (00:10→07:57)
[2024-05-17] MEDS: Ketorolac 15 MG/ML Vial IV ×3 (05:14→22:19)
[2024-05-17] MEDS: Vancomycin HCl 2,000 MG in 0.9% Normal Saline (500mL Bag) 500 ML 250 MG IV ×2 (05:15→17:28)
[2024-05-17] MEDS: SEMAGLUTIDE 14 MG TABLET PO (05:19)
[2024-05-17 05:46] LABS: Absolute Lymphocyte Count 1.53 X10^3/uL (0.83-4.51); Basophil% 1.3 % (0-1); Eosinophil# 0.24 X10^3/uL; Hematocrit 36.5 % (40-54); Hemoglobin 12.8 g/dL (13.0-16.5); Lymphocyte # 1.53 X10^3/ul (0.83-4.51); Lymphocyte % 19.3 % (19-41); Mean Corp Hgb Conc 35.1 g/dL (32-36); Mean Corpuscular Hgb 31.8 pg (27.0-32.0); Mean Corpuscular Volume 90.8 fL (80-94); Mean Platelet Vol. 9.1 fl (6.2-12.0); Monocyte# 1.06 X10^3/uL; Monocyte% 13.4 % (0-10); NRBC Flagged by Analyzer 0 % (0-5); Neutrophil # 4.98 X10^3/uL (2.7-7.7); Neutrophil % 62.6 % (47-70); Platelet Count 222 K/mm3 (150-450); RBC Distribution Width CV 12.2 % (11.6-14.6); RBC Distribution Width SD 40.3 fl (35.1-43.9); Red Blood Count 4.02 M/mm3 (4.6-6.2); White Blood Count 7.9 K/mm3 (4.4-11.0)
--- NOTE | 2024-05-17 06:00 | EKG12_ITS ---
Test Reason : PRE-OP Blood Pressure : / mmHG Vent. Rate : 080 BPM Atrial Rate : 080 BPM P-R Int : 134 ms QRS Dur : 092 ms QT Int : 390 ms P-R-T Axes : 029 018 005 degrees QTc Int : 449 ms Normal sinus rhythm Normal ECG No previous ECGs available Confirmed by DORINA MOFFETT, CHERISE ([id number]), website/blog editor LASHAUN DUEÑAS ([id number]) on 05/17/2024 1:36:19 PM Referred By: FRANCHESKA Confirmed By:CHERISE CAM MD
[2024-05-17 06:10] LABS: Anion Gap 9 (5-15); BUN 20 mg/dL (7-18); BUN/Creat Ratio 24.2 RATIO (10-20); Calcium,Total 8.9 mg/dL (8.5-10.1); Chloride 110 mmol/L (98-107); Creatinine, Serum 0.82 mg/dL (0.70-1.30); EST Glomerular Filtration Rate 105 mL/min (>60); Est Glom Filt Rate - Afr Amer 126 mL/min (>60); Glucose 155 mg/dL (74-106); Potassium 3.8 mmol/L (3.5-5.1); Sodium Level 144 mmol/L (136-145)
[2024-05-17 06:15] VITALS: BP 171/80; PULSE 104; RESP 18; TEMP 36.7; O2SAT 98
[2024-05-17] MEDS: Insulin Lispro 100 UNIT/ML INSULN.PEN SC ×4 (06:22→22:04)
[2024-05-17 07:35] VITALS: O2SAT 95
--- NOTE | 2024-05-17 07:40 | CT_ITS ---
STUDY: CT PELVIS WITH CONTRAST REASON FOR EXAM: Male, 49 years old. Rectal abscess RADIATION DOSAGE (If Supplied By Facility): CTDIvol = ( 28.21 ) mGy, DLP = ( 1051.54 ) mGycm TECHNIQUE: Transaxial imaging of the pelvis was performed without oral contrast. IV 100mL Isovue-370 was administered intravenously. Multiplanar coronal and sagittal images were reformatted. Individualized dose optimization techniques were used for this CT. COMPARISON: Comparison is made with prior study dated May 15, 2024. FINDINGS: Normal urinary bladder. The previously seen left perirectal/perianal abscess as been drained. Minimal air bubbles are seen most likely secondary to the recent intervention. Mild residual increased markings are seen in the surrounding subcutaneous fat. Normal visualized small intestine. There are multiple colonic diverticula of the sigmoid colon consistent with chronic diverticulosis. There is no pelvic fluid. There is no pelvic lymphadenopathy or mass lesion. There is scattered atherosclerotic calcification of the pelvic arteries. There is a right inguinal hernia containing fat. Normal osseous structures. CT/Pelvis WITH IV Contrast IMPRESSION: Status post drainage of the left rectal/perianal abscess collection with minimal postoperative changes present. No residual abscess is seen. Residual increased markings in the subcutaneous fat at the operative site as well as along the medial aspect of the left gluteus region. Electronically Signed: Jean-Pierre Wade MD at 8:17 EDT ,
[2024-05-17] MEDS: oxyCODONE 5 MG Tablet PO ×2 (07:57→15:51)
[2024-05-17] MEDS: Lisinopril 10 MG Tablet PO (08:05)
[2024-05-17] MEDS: Docusate Sodium 100 MG Capsule PO (08:05)
[2024-05-17] MEDS: Empagliflozin 25 MG Tablet PO (08:05)
[2024-05-17] MEDS: Atorvastatin Calcium 20 MG Tablet PO (08:05)
[2024-05-17] MEDS: Polyethylene Glycol 3350 17 GM PACKET PO (08:13)
--- NOTE | 2024-05-17 08:41 | PN.SURG_ITS ---
Subjective Subjective The patient reports a lot of pain this morning trying to have a bowel movement. Objective Data Objective Data Vital Signs: Vital Signs Temp Pulse Resp BP Pulse Ox O2 Del Method 98.1 F 104 H 18 171/80 H 95 Room Air 05/17/24 06:15 05/17/24 06:15 05/17/24 06:15 05/17/24 06:15 05/17/24 07:35 05/17/24 07:35 Oxygen Delivery Method [1 ( Room Air Initial Baseline)] Oxygen Delivery Method Room Air Weight: 219 lb 15.988 oz Body Mass Index (BMI) 31.5 Intake & Output: Intake and Output for Last 24 Hours 05/15/24 05/16/24 05/17/24 23:59 23:59 23:59 Intake Total 4407.25 / 4407.25 2823.5 / 2823.5 660 / 660 Output Total 1100 / 1100 Balance 4407.25 / 4407.25 2823.5 / 2123.5 -440 / -440 Lab / Micro Data 05/17/24 05:25 05/17/24 05:25 Labs: Laboratory Results - last 24 hr 05/16/24 12:32: POC Glucose 249 H 05/16/24 16:45: POC Glucose 183 H 05/16/24 17:15: Vancomycin Trough 17.5 H 05/16/24 21:11: POC Glucose 216 H 05/17/24 05:25: WBC 7.9, RBC 4.02 L, Hgb 12.8 L, Hct 36.5 L, MCV 90.8, MCH 31.8, MCHC 35.1, RDW Std Deviation 40.3, RDW Coeff of Arya 12.2, Plt Count 222, MPV 9.1, Immature Gran % (Auto) 0.400, Neut % (Auto) 62.6, Lymph % (Auto) 19.3, [place] % (Auto) 13.4 H, Eos % (Auto) 3.0, Baso % (Auto) 1.3 H, Absolute Neuts (auto) 5.0, Absolute Lymphs (auto) 1.53, Nucleated RBC % 0, Sodium 144, Potassium 3.8, Chloride 110 H, Carbon Dioxide 25.0, Anion Gap 9, BUN 20 H, Creatinine 0.82, Estim Creat Clear Calc 126.20, Est GFR (MDRD) Af Amer 126, Est GFR (MDRD) Non-Af 105, BUN/Creatinine Ratio 24.2 H, Glucose 155 H, Calcium 8.9 Micro: Microbiology 05/15/24 06:50 Perianal Abcess Gram Stain - Final Radiography Diagnostic Testing: Radiology Impression Pelvis CT 05/17/24 07:40 IMPRESSION: Status post drainage of the left rectal/perianal abscess collection with minimal postoperative changes present. No residual abscess is seen. Residual increased markings in the subcutaneous fat at the operative site as well as along the medial aspect of the left gluteus region. Electronically Signed: Jean-Pierre Wade MD at 8:17 EDT , Physical Exam Const oriented x3 and no apparent distress Resp normal respiratory effort GI soft to palpation and non-tender Assessment & Plan Assessment/Plan (1) Perirectal abscess: PLAN: The patient has a normal white count this morning. The packing was removed and the drainage is seropurulent and seems to be thinner than yesterday. There was concern for increased firmness of the area and there is some cellulitis but the drainage appears improved. I sent him for CT scan to evaluate and the CT scan revealed a large stool ball in the rectum but the abscess seems adequately drained and cellulitis does not seem to be worse at all. I will order him a soapsuds enema and MiraLAX to try to clear the obstruction. I did offer him disimpaction but he would like to try these other methods first. I will also order him Ativan to help him sleep and relax as he is very anxious. I have also reordered his regular diet as there is no plan for surgery at this time. Jemal Gama MD Pager: [facility] [address] [place] [address], [address] [place] [address] Office:
--- NOTE | 2024-05-17 10:00 | NURSING ---
Patient reported having bowel movement after receiving miralax this morning. Stool in toilet partially formed and moderate amount. States that his abdomen feels better and he was able to urinate more easily. Dr Gama notified. Soap suds enema D/C'd.
[2024-05-17 12:03] LABS: Bedside Glucose 214 mg/dL (74-106)
[2024-05-17 12:53] LABS: Hemoglobin A1c 7.1 % (3.8-5.6)
[2024-05-17 17:57] LABS: Bedside Glucose 200 mg/dL (74-106)
[2024-05-17 20:10] VITALS: BP 163/88; PULSE 70; RESP 15; TEMP 37.1; O2SAT 99
[2024-05-17] MEDS: Tamsulosin HCl 0.4 MG Capsule 0.8 MG PO (22:14)
[2024-05-17] MEDS: traZODone 50 MG Tablet PO (22:20)
[2024-05-17 23:08] LABS: Bedside Glucose 159 mg/dL (74-106)
[2024-05-18 03:00] VITALS: BP 162/84; PULSE 70; RESP 15; TEMP 36.8; O2SAT 97
[2024-05-18 04:16] VITALS: O2SAT 97
[2024-05-18] MEDS: Vancomycin HCl 2,000 MG in 0.9% Normal Saline (500mL Bag) 500 ML 250 MG IV (05:09)
[2024-05-18] MEDS: Ketorolac 15 MG/ML Vial IV (05:15)
[2024-05-18] MEDS: SEMAGLUTIDE 14 MG TABLET PO (05:20)
[2024-05-18] MEDS: Meropenem 1 GM in 0.9% Normal Saline (100mL MB+) 100 ML IV (06:28)
[2024-05-18] MEDS: Insulin Lispro 100 UNIT/ML INSULN.PEN SC (06:35)
[2024-05-18 07:11] LABS: Bedside Glucose 151 mg/dL (74-106)
[2024-05-18 07:34] VITALS: O2SAT 96
[2024-05-18 07:42] LABS: Absolute Lymphocyte Count 1.38 X10^3/uL (0.83-4.51); Absolute Neutrophil Count 3.9 X10^3/uL (2.0-7.7); Basophil# 0.09 X10^3/uL; Basophil% 1.4 % (0-1); Eosinophil# 0.28 X10^3/uL; Eosinophils% 4.4 % (0-5); Hemoglobin 12.4 g/dL (13.0-16.5); Lymphocyte # 1.38 X10^3/ul (0.83-4.51); Lymphocyte % 21.9 % (19-41); Mean Corp Hgb Conc 34.4 g/dL (32-36); Mean Corpuscular Hgb 31.8 pg (27.0-32.0); Mean Corpuscular Volume 92.3 fL (80-94); Mean Platelet Vol. 9.5 fl (6.2-12.0); Monocyte# 0.66 X10^3/uL; Monocyte% 10.5 % (0-10); NRBC Flagged by Analyzer 0 % (0-5); Neutrophil # 3.85 X10^3/uL (2.7-7.7); Neutrophil % 61.2 % (47-70); Platelet Count 221 K/mm3 (150-450); RBC Distribution Width CV 12.2 % (11.6-14.6); RBC Distribution Width SD 41.4 fl (35.1-43.9); White Blood Count 6.3 K/mm3 (4.4-11.0)
[2024-05-18 08:00] LABS: Anion Gap 9 (5-15); BUN 15 mg/dL (7-18); BUN/Creat Ratio 23.4 RATIO (10-20); Calcium,Total 8.4 mg/dL (8.5-10.1); Chloride 108 mmol/L (98-107); Creatinine, Serum 0.64 mg/dL (0.70-1.30); EST Glomerular Filtration Rate 140 mL/min (>60); Est Glom Filt Rate - Afr Amer 169 mL/min (>60); Estimated Creatinine Clearance 161.69 ml/min; Glucose 143 mg/dL (74-106); Potassium 3.4 mmol/L (3.5-5.1); Sodium Level 141 mmol/L (136-145)
--- NOTE | 2024-05-18 08:37 | PN.SURG_ITS ---
Subjective Subjective Patient has CT scan yesterday showing constipation. He had MiraLAX which cleaned him out and now he is able to pee normally and his pain is well- controlled. He is having minimal drainage. Objective Data Objective Data Vital Signs: Vital Signs Temp Pulse Resp BP Pulse Ox O2 Del Method 98.2 F 70 15 162/84 H 97 Room Air 05/18/24 03:00 05/18/24 03:00 05/18/24 03:00 05/18/24 03:00 05/18/24 04:16 05/18/24 04:16 Oxygen Delivery Method [1 ( Room Air Initial Baseline)] Oxygen Delivery Method Room Air Weight: 219 lb 15.988 oz Body Mass Index (BMI) 31.5 Intake & Output: Intake and Output for Last 24 Hours 05/16/24 05/17/24 05/18/24 23:59 23:59 23:59 Intake Total 2823.5 / 2823.5 1440 / 1440 660 / 660 Output Total 1100 / 1100 Balance 2823.5 / 2123.5 340 / 340 660 / 660 Lab / Micro Data 05/18/24 06:48 05/18/24 06:48 Labs: Laboratory Results - last 24 hr 05/17/24 05:25: Hemoglobin A1c 7.1 H 05/17/24 11:36: POC Glucose 214 H 05/17/24 15:53: POC Glucose 200 H 05/17/24 22:03: POC Glucose 159 H 05/18/24 06:34: POC Glucose 151 H 05/18/24 06:48: WBC 6.3, RBC 3.90 L, Hgb 12.4 L, Hct 36.0 L, MCV 92.3, MCH 31.8, MCHC 34.4, RDW Std Deviation 41.4, RDW Coeff of Arya 12.2, Plt Count 221, MPV 9.5, Immature Gran % (Auto) 0.600, Neut % (Auto) 61.2, Lymph % (Auto) 21.9, [place] % (Auto) 10.5 H, Eos % (Auto) 4.4, Baso % (Auto) 1.4 H, Absolute Neuts (auto) 3.9, Absolute Lymphs (auto) 1.38, Nucleated RBC % 0, Sodium 141, Potassium 3.4 L , Chloride 108 H, Carbon Dioxide 24.0, Anion Gap 9, BUN 15, Creatinine 0.64 L, Estim Creat Clear Calc 161.69, Est GFR (MDRD) Af Amer 169, Est GFR (MDRD) Non-Af 140, BUN/Creatinine Ratio 23.4 H, Glucose 143 H, Calcium 8.4 L Micro: Microbiology 05/15/24 06:50 Perianal Abcess Gram Stain - Final 05/15/24 06:50 Perianal Abcess Wound Culture - Preliminary Escherichia coli Gram Positive Cocci 05/15/24 05:15 Blood Culture (Wb) - Anticubital Right Blood Culture - Preliminary No growth in 48 hours. 05/15/24 04:40 Blood Culture (Wb) - Anticubital Right Blood Culture - Preliminary No growth in 48 hours. Physical Exam Const oriented x3 and no apparent distress Resp normal respiratory effort GI soft to palpation and non-tender Assessment & Plan Assessment/Plan (1) Perirectal abscess: PLAN: The patient was having impaction of stool and he was able to go yesterday after MiraLAX. He feels much better now and reports that his pain is well- controlled and he is able to urinate normally. I will discharge him home on oral antibiotics today and he will continue packing the incision. He will follow-up next week. if he gets worse at all or has fevers or chills or increasing pain he should come back to the emergency room. Jemal Gama MD Pager: [facility] [address] [place] [address], [address] [place] [address] Office:
--- NOTE | 2024-05-18 08:39 | PCM.DC.SUM ---
Providers Date of Admission: 05/15/24 Primary Care Physician: Dr. Bill Rodriguez MD Consultations 05/15/24 07:21 Consult: Onc/Wound/sole rougher Routine Comment: Reason for Consult:: Perirectal abscess packing changes BID Comments:: Opened and packed this morning in the ED Reason For Visit: PERIRECTAL ABSCESS Diagnosis Discharge Diagnosis (1) Perirectal abscess: Status: Acute Code(s): K61.1 - Rectal abscess Plan: The patient was having impaction of stool and he was able to go yesterday after MiraLAX. He feels much better now and reports that his pain is well-controlled and he is able to urinate normally. I will discharge him home on oral antibiotics today and he will continue packing the incision. He will follow-up next week. if he gets worse at all or has fevers or chills or increasing pain he should come back to the emergency room. Jemal Gama MD Pager: [facility] [address] [place] [address], [address] [place] [address] Office: Medications at Discharge Home Medications atorvastatin 20 mg tablet 20 mg PO QDAY 05/13/24 dapagliflozin propanediol 10 mg tablet (Farxiga) 10 mg PO QDAY 05/13/24 lisinopril 10 mg tablet 10 mg PO QDAY 05/13/24 metformin 1,000 mg tablet 1,000 mg PO QDAY 05/13/24 semaglutide 14 mg tablet (Rybelsus) 14 mg PO QAM d 05/13/24 sulfamethoxazole 800 mg-trimethoprim 160 mg tablet (Bactrim DS) 1 tab PO BID 14 days #28 tabs 05/13/24 tamsulosin 0.4 mg capsule 0.8 mg PO QDAY bladde 05/13/24 trazodone 50 mg tablet 50 mg PO QHS PRN sleep #7 tabs 05/13/24 ciprofloxacin HCl 500 mg tablet (Cipro) 500 mg PO BID #14 tabs 05/18/24 metronidazole 500 mg tablet 500 mg PO TID 1 week #21 tabs 05/18/24 oxycodone 5 mg tablet 5 - 10 mg (1 - 2 x 5 mg) PO Q4H PRN PRN Pain Score 4-10 5 days #30 tabs 05/18/24 Hospital Course Summary of Care Provided Hospital Course: Patient was admitted with a perirectal abscess which was drained in the emergency room. It was packed. The following day he was still having a lot of pain. CT scan was ordered which showed that the abscess was completely drained but he had a large impacted stool ball. He was given MiraLAX and he was able to pass a stool ball. Following day his drainage was decreasing his white count returned normal. He will be discharged home on oral antibiotics and follow-up with me. He will pack the wound twice daily. Weight / BMI Weight Weight: 219 lb 15.988 oz Body Mass Index (BMI) 31.5 ABG / Lab / Microbiology Data 05/18/24 06:48 05/18/24 06:48 Laboratory: Laboratory Results - last 24 hr 05/17/24 05:25: Hemoglobin A1c 7.1 H 05/17/24 11:36: POC Glucose 214 H 05/17/24 15:53: POC Glucose 200 H 05/17/24 22:03: POC Glucose 159 H 05/18/24 06:34: POC Glucose 151 H 05/18/24 06:48: WBC 6.3, RBC 3.90 L, Hgb 12.4 L, Hct 36.0 L, MCV 92.3, MCH 31.8, MCHC 34.4, RDW Std Deviation 41.4, RDW Coeff of Arya 12.2, Plt Count 221, MPV 9.5, Immature Gran % (Auto) 0.600, Neut % (Auto) 61.2, Lymph % (Auto) 21.9, [place] % (Auto) 10.5 H, Eos % (Auto) 4.4, Baso % (Auto) 1.4 H, Absolute Neuts (auto) 3.9, Absolute Lymphs (auto) 1.38, Nucleated RBC % 0, Sodium 141, Potassium 3.4 L, Chloride 108 H, Carbon Dioxide 24.0, Anion Gap 9, BUN 15, Creatinine 0.64 L, Estim Creat Clear Calc 161.69, Est GFR (MDRD) Af Amer 169, Est GFR (MDRD) Non-Af 140, BUN/Creatinine Ratio 23.4 H, Glucose 143 H, Calcium 8.4 L Microbiology: Microbiology 05/15/24 06:50 Perianal Abcess Gram Stain - Final 05/15/24 06:50 Perianal Abcess Wound Culture - Preliminary Escherichia coli Gram Positive Cocci 05/15/24 05:15 Blood Culture (Wb) - Anticubital Right Blood Culture - Preliminary No growth in 48 hours. 05/15/24 04:40 Blood Culture (Wb) - Anticubital Right Blood Culture - Preliminary No growth in 48 hours. D/C Instructions Discharge Diet: No restrictions Discharge Activity: Return to Normal Activity, May Shower and May Take a Tub Bath Weight Bearing Status: Weight bearing as tolerated Call your doctor if your incision/area has: Continuous Slow Oozing, Sudden Increased Bleeding, Increased Pain/ Swelling, Increased Redness, Foul Smelling Discharge and Swelling at the incision site Call your doctor if you observe: Fever of 101 or Higher Change Dressing in: 1 day (Change packing twice a day) Cleanse incision/area with: Soap & Water Please Follow Up With: Jemal Gama MD When: Please call to schedule follow up appointment for next week. [phone] Meaningful Use Info Meaningful Use Meaningful Use Diagnoses (Choose all that apply): None applicable Ischemic Stroke Statin Dosing Therapy Reference: STATIN DOSE THERAPY REFERENCE: * Patients > 75 years receive moderate or high dose statin therapy. * Patients 75 years or YOUNGER should receive HIGH intensity statin dose unless contraindicated. You will be required to document reason for non-treatment if statin daily dose does not meet guidelines. HIGH DOSE STATIN THERAPY DAILY Atorvastatin > than or = to 40 mg Rosuvastatin > than or = to 20 mg Amlodipine + Atorvastatin > than or = to 2.5/40 mg Ezetimibe + Simvastatin 10/80 mg Simvastatin 80mg Discharge Plan Admission Admit Date/Time: 05/15/24 07:30 Attending Provider: Jemal Gama Primary Care Provider: Bill Rodriguez Discharge Orders/Prescriptions Prescriptions: New oxycodone 5 mg Tablet 5 - 10 mg PO Q4H PRN PRN (Reason: Pain Score 4-10) 5 Days Qty: 30 0RF ciprofloxacin HCl [Cipro] 500 mg tablet 500 mg PO BID Qty: 14 0RF metronidazole 500 mg tablet 500 mg PO TID 7 Days Qty: 21 0RF Continued tamsulosin 0.4 mg capsule 0.8 mg PO QDAY lisinopril 10 mg tablet 10 mg PO QDAY atorvastatin 20 mg tablet 20 mg PO QDAY metformin 1,000 mg tablet 1,000 mg PO QDAY dapagliflozin propanediol [Farxiga] 10 mg tablet 10 mg PO QDAY Rybelsus 14 mg tablet 14 mg PO QAM sulfamethoxazole-trimethoprim [Bactrim DS] 800-160 mg tablet 1 tab PO BID 14 Days Qty: 28 0RF trazodone 50 mg tablet 50 mg PO QHS PRN (Reason: sleep) Qty: 7 0RF Referrals / Follow Up: Bill Rodriguez MD [Primary Care Provider] - Disposition Disposition (needs filled in before D/C Order can be placed): Home, Self Care
[2024-05-18 08:49] VITALS: BP 135/82; PULSE 62; RESP 18; TEMP 36.8; O2SAT 99
--- NOTE | 2024-05-18 09:34 | CASEMGMT ---
Pt has a dc order in, PAVEL CM into pt room, pt lying in bed with at bedside. Pt states she will perform dressing changes for pt. She states she did the dressing change this morning and has observed them since being in the hospital. She states she feels comfortable with doing the dressing changes. Pt has supplies to go home with. Pt has scheduled an appt with 's office on Tuesday. Pt and deny any further needs at this time. Pt anxious for dc.
--- NOTE | 2024-05-18 11:19 | PHA.DC_ITS ---
Pharmacy [facility] Service has performed discharge medication reconciliation and counseling for this patient. The patient's discharge medication list was reviewed for discrepancies and discrepancies were resolved. The patient was counseled on the following discharge medications and changes in medications for homegoing were reviewed. The Reason for Use, instructions for use, and potential side effects were reviewed for all new medications. The patient's questions regarding all of their medications were answered. 1. Ciprofloxacin 500 mg PO BID x 7 days 2. Metronidazole 500 mg PO TID x 7 days 3. Oxycodone 5-10 mg Q4H PRN pain The patient was able to verbally demonstrate an understanding of their discharge medications. The patient was counselled on new medications by manager clinical pharmacy [facility]. Medications at Discharge Home Medications atorvastatin 20 mg tablet 20 mg PO QDAY 05/13/24 dapagliflozin propanediol 10 mg tablet (Farxiga) 10 mg PO QDAY 05/13/24 lisinopril 10 mg tablet 10 mg PO QDAY 05/13/24 metformin 1,000 mg tablet 1,000 mg PO QDAY 05/13/24 semaglutide 14 mg tablet (Rybelsus) 14 mg PO QAM d 05/13/24 sulfamethoxazole 800 mg-trimethoprim 160 mg tablet (Bactrim DS) 1 tab PO BID 14 days #28 tabs 05/13/24 tamsulosin 0.4 mg capsule 0.8 mg PO QDAY bladde 05/13/24 trazodone 50 mg tablet 50 mg PO QHS PRN sleep #7 tabs 05/13/24 ciprofloxacin HCl 500 mg tablet (Cipro) 500 mg PO BID #14 tabs 05/18/24 metronidazole 500 mg tablet 500 mg PO TID 1 week #21 tabs 05/18/24 oxycodone 5 mg tablet 5 - 10 mg (1 - 2 x 5 mg) PO Q4H PRN PRN Pain Score 4-10 5 days #30 tabs 05/18/24
== END 2024-05-18 10:04 | disposition home or self-care (01) | DRG 394 ==
LOC: ED 07:04 → MS3 07:37
PROVIDERS: Anesthesiology; Physician Assistant; Admitting Provider Surgery; Emergency Provider Emergency Medicine; PCP Family Medicine; Visit Provider Surgery
DX: K61.0 Anal abscess (principal); L03.315 Cellulitis of perineum; E11.9 Type 2 diabetes mellitus without complications; K56.41 Fecal impaction; I10 Essential (primary) hypertension; E78.5 Hyperlipidemia, unspecified; Z79.84 Long term (current) use of oral hypoglycemic drugs; Z79.899 Other long term (current) drug therapy
CPT/HCPCS: 36415; 72193; 80048; 80202; 82962; 83036; 83605; 84145; 85025; 87040; 87070; 87075; 87077; 87186; 87205; 93005; 94668; 99285; J2185; J7030; J7040; J7050; Q9967; A4216; J2405